=== PATIENT | female | born 1965 | race African-American/Black ===

== ENCOUNTER → 2017-01-06 | Outpatient (CLI) | payer BC, OTHER ==
[~2017-01-06] MED LIST: HYDROCODON-ACE1 EAC7; IBUPROFEN 200200 M1 PO; MULTIGEN PO; NORVASC10 MG PO; ZESTORETIC 20-1 EAC3 PO
== END ==
LOC: RAD 03:06
DX: Z12.31 Encounter for screening mammogram for malignant neoplasm of breast (principal)

== ENCOUNTER → 2017-01-15 | Outpatient (CLI) | payer BC, OTHER | LOC: ULTRA 14:09 | DX: N63.10 Unspecified lump in the right breast, unspecified quadrant (principal) ==

== ENCOUNTER → 2017-11-17 | Outpatient (CLI) | payer BC, OTHER | LOC: RAD 10:42 | DX: R05 Cough (principal); Z85.3 Personal history of malignant neoplasm of breast ==

== ENCOUNTER → 2017-12-03 | Outpatient (CLI) | payer BC, OTHER | LOC: CAT 07:21 | DX: R05 Cough (principal); R91.8 Other nonspecific abnormal finding of lung field; Z85.3 Personal history of malignant neoplasm of breast ==